=== PATIENT | male | born 1945 | race Caucasian/White ===

== ENCOUNTER 2017-08-29 12:24 | Emergency (ER) | payer MEDICARE, MEDICAID ==
[~2017-08-29] VITALS: Ht 182.9 cm; Wt 76.2 kg
[2017-08-29 12:56] VITALS: BP 116/85
== END 2017-08-29 14:30 | disposition home or self-care (01) ==
LOC: ED 14:24
DX: B02.29 Other postherpetic nervous system involvement (principal)
CPT/HCPCS: 99283

== ENCOUNTER 2017-09-05 17:05 | Emergency (ER) | payer MEDICARE, MEDICAID ==
[~2017-09-05] VITALS: Ht 182.9 cm; Wt 76.3 kg
[2017-09-05 17:21] VITALS: BP 124/76
== END 2017-09-05 18:29 | disposition home or self-care (01) ==
LOC: ED 18:23
DX: B02.9 Zoster without complications (principal); Z76.0 Encounter for issue of repeat prescription
CPT/HCPCS: 99283